=== PATIENT | male | born 1980 | race African-American/Black ===

== ENCOUNTER 2017-11-15 12:13 | Emergency (ER) | payer SELFPAY ==
[2017-11-15] MEDS ORDERED: Penicillin V Potassium 250 MG TAB ONE (12:55)
== END 2017-11-15 13:00 | disposition home or self-care (01) ==
LOC: NAV ERS 12:13
DX: J02.9 Acute pharyngitis, unspecified (principal); E11.9 Type 2 diabetes mellitus without complications; F17.210 Nicotine dependence, cigarettes, uncomplicated
CPT/HCPCS: 99283

== ENCOUNTER 2017-11-30 22:12 | Emergency (ER) | payer SELFPAY ==
[2017-11-30] MEDS ORDERED: cefTRIAXone\\ROCEPHIN 1 GM VIAL ONE (23:02)
[2017-11-30] MEDS ORDERED: Sodium Chloride 0.9% 100 ML ONE (23:03)
[2017-11-30] MEDS ORDERED: Ketorolac Tromethamine 30 MG/ML VIAL ONE (23:12)
[2017-11-30 23:16] LABS: Anion Gap 18 mmol/L (10-20); BUN (Urea Nitrogen) 16 mg/dL (8.9-20.6); Band 22 % (5-11); Calc. Creatinine Clearance 0 mL/min (70-130); Calcium 9.9 mg/dL (7.8-10.44); Carbon Dioxide 21 mmol/L (22-29); Chloride 104 mmol/L (98-107); Eosinophils 1 % (0-10); Estimated GFR-MDRD Greater than 90; Glucose 117 mg/dL (70-105); Hemoglobin 14.9 g/dL (14.0-18.0); Lymphocytes 13 % (21-51); MDiff Complete? YES; Mean Corpuscular HGB CONC 31.3 g/dL (32.0-36.0); Mean Corpuscular Hemoglobin 29.3 pg (27.0-31.0); Mean Corpuscular Volume 93.5 fL (78.0-98.0); Mean Platelet Volume 7.3 fL (7.4-10.4); Monocytes 7 % (0-10); Neutrophil 57 % (42-75); PLT Morphology Comment Appears Adequate; Platelet Count 371 thou/uL (130-400); Potassium 4.2 mmol/L (3.5-5.1); RBC Distribution Width 12.8 % (11.5-14.5); RBC Morphology Normal; Red Blood Cell (RBC) Count 5.07 mill/uL (4.70-6.10); Sodium 139 mmol/L (136-145); White Blood Cell (WBC) Count 15.5 thou/uL (4.8-10.8)
[2017-12-01] MEDS ORDERED: Dexamethasone 20 MG/5 ML VIAL ONE (00:43)
--- NOTE | 2017-12-01 10:53 | CT ---
CONTRAST ENHANCED CT IMAGES OF SOFT TISSUE NECK: 11/30/17 HISTORY: Patient with sore throat. Diagnosed with strep. Did not finish antibiotics. Rule out peritonsillar ab scess. Contrast enhanced CT images of the soft tissue neck obtained. Images demonstrate a left area of soft tissue hypodensity in the region of the left palatine tonsil d iameter measuring 1.3 x 2.5 cm. This is compatible with a left palatine tonsil abscess with some slig ht right sided deviation of the uvula and encroachment into the hypopharyngeal region and posterior a spect of the oropharynx. No definite evidence of necrotic lymph nodes seen. Some bilateral deep cervical and level III mildly enlarged lymph nodes also seen. IMPRESSION: Left peritonsillar abscess. Axial images measuring 1.3 x 2.5 cm. POS: [facility]
== END 2017-12-01 01:04 | disposition home or self-care (01) ==
LOC: NAV ERS 22:12
DX: J36 Peritonsillar abscess (principal); E11.9 Type 2 diabetes mellitus without complications; F17.210 Nicotine dependence, cigarettes, uncomplicated
CPT/HCPCS: 70492; 80048; 85025; 96365; 96375; J0696; J1100; J1885; J7050

== ENCOUNTER 2019-03-22 17:25 | Emergency (ER) | payer SELFPAY ==
[2019-03-22 18:12] LABS: #Basophils 0.1 thou/uL (0.0-0.2); #Lymphocytes 1.9 thou/uL (1.20-3.40); #Monocytes 0.8 thou/uL (0.11-0.59); #Neutrophils 9.2 thou/uL (1.40-6.50); %Basophils 1.2 % (0.0-1.0); %Eosinophils 0.1 % (0.0-10.0); %Lymphocytes 15.9 % (21.0-51.0); %Monocytes 6.7 % (0.0-10.0); %Neutrophils 76.1 % (42.0-75.0); Hemoglobin 15.9 g/dL (14.0-18.0); Mean Corpuscular Volume 96.9 fL (78.0-98.0); Mean Platelet Volume 7.2 fL (7.4-10.4); Platelet Count 304 thou/uL (130-400); RBC Distribution Width 12.8 % (11.5-14.5); Red Blood Cell (RBC) Count 5.13 mill/uL (4.70-6.10); White Blood Cell (WBC) Count 12.1 thou/uL (4.8-10.8)
--- NOTE | 2019-03-22 18:18 | CT ---
CT BRAIN WITHOUT CONTRAST ENHANCEMENT: HISTORY: Head injury after falling off a horse. FINDINGS: The ventricular and cisternal system is within normal limits. There are no signs of intracerebral he morrhage or extraaxial fluid collections. The mastoid air cells and visualized sinuses are clear. IMPRESSION: No acute intracranial abnormalities. POS: [facility]
[2019-03-22] MEDS ORDERED: Ketorolac Tromethamine 30 MG/ML VIAL ONE (18:41)
--- NOTE | 2019-03-22 18:42 | RAD ---
PA CHEST AND RIGHT RIBS FOUR VIEWS: HISTORY: Rib injury. FINDINGS: Heart size and mediastinum are within normal limits. Lungs are clear of infiltrates. No effusions are identified. No rib fractures. IMPRESSION: Negative right ribs. POS: [facility]
--- NOTE | 2019-03-22 18:42 | CT ---
CT CERVICAL SPINE WITHOUT CONTRAST: HISTORY: Neck injury post falling off a horse. FINDINGS: Vertebral bodies are normal in height. Disk spaces appear well preserved. Facets are in normal alignm ent. No canal or foraminal stenosis. No evidence of fracture. IMPRESSION: No CT evidence of fracture of the cervical spine. POS: [facility]
[2019-03-22 18:44] LABS: ALT (SGPT) 28 U/L (8-55); AST (SGOT) 71 U/L (5-34); Albumin 4.6 g/dL (3.5-5.0); Alkaline Phosphatase 102 U/L (40-110); Anion Gap 24 mmol/L (10-20); BUN (Urea Nitrogen) 14 mg/dL (8.9-20.6); Bilirubin, Total 0.7 mg/dL (0.2-1.2); Calc. Creatinine Clearance 0 mL/min (70-130); Calcium 9.9 mg/dL (7.8-10.44); Carbon Dioxide 21 mmol/L (22-29); Chloride 102 mmol/L (98-107); Estimated GFR-MDRD Greater than 90; Globulin 3.2 g/dL (2.4-3.5); Glucose 115 mg/dL (70-105); Potassium 4.5 mmol/L (3.5-5.1); Protein, Total 7.8 g/dL (6.0-8.3); Sodium 142 mmol/L (136-145)
--- NOTE | 2019-03-22 19:02 | RAD ---
RIGHT SHOULDER THREE VIEWS: HISTORY: Shoulder injury. FINDINGS: There are no signs of fracture or dislocation. IMPRESSION: Negative right shoulder. POS: [facility]
== END 2019-03-22 19:19 | disposition home or self-care (01) ==
LOC: NAV ERS 17:25
DX: S06.0X1A Concussion with loss of consciousness of 30 minutes or less, initial encounter (principal); T14.8XXA Other injury of unspecified body region, initial encounter; E11.9 Type 2 diabetes mellitus without complications; F17.210 Nicotine dependence, cigarettes, uncomplicated; W55.12XA Struck by horse, initial encounter
CPT/HCPCS: 70450; 72125; 80053; 85025; 96374; J1885

== ENCOUNTER 2019-05-28 09:54 | Emergency (ER) | payer OTHER, SELFPAY ==
[2019-05-28] MEDS ORDERED: Ketorolac Tromethamine 60 MG/2 ML VIAL ONE (10:26)
--- NOTE | 2019-05-28 10:50 | RAD ---
RIGHT SHOULDER 3 VIEWS: HISTORY: Trauma. Right shoulder pain. FINDINGS/IMPRESSION: No acute fracture or dislocation is identified. POS: [facility]
== END 2019-05-28 11:12 | disposition home or self-care (01) ==
LOC: NAV ERS 09:54
DX: S43.401A Unspecified sprain of right shoulder joint, initial encounter (principal); E10.9 Type 1 diabetes mellitus without complications; F17.210 Nicotine dependence, cigarettes, uncomplicated; W23.0XXA Caught, crushed, jammed, or pinched between moving objects, initial encounter
CPT/HCPCS: 96372; J1885

== ENCOUNTER 2020-07-31 04:22 | Emergency (ER) | payer SELFPAY ==
[2020-07-31] MEDS ORDERED: Lidocaine 1% w/Epinephrine 1:100K 30 ML VIAL ONE (04:53)
[2020-07-31] MEDS ORDERED: Sulfameth/Trimethoprim DS 800-160mg TAB ONE (05:25)
== END 2020-07-31 05:30 | disposition home or self-care (01) ==
LOC: NAV ERS 04:22
DX: L02.31 Cutaneous abscess of buttock (principal); E10.9 Type 1 diabetes mellitus without complications; F17.210 Nicotine dependence, cigarettes, uncomplicated
CPT/HCPCS: 10060

== ENCOUNTER 2022-07-25 13:29 | Emergency (ER) | payer SELFPAY | END 2022-07-25 14:05 | disposition home or self-care (01) | LOC: NAV ERS 13:29 | DX: K04.7 Periapical abscess without sinus (principal); F17.210 Nicotine dependence, cigarettes, uncomplicated; E11.9 Type 2 diabetes mellitus without complications | CPT/HCPCS: 99282 ==

== ENCOUNTER 2024-02-12 22:13 | Emergency (ER) | payer SELFPAY ==
[2024-02-12] MEDS ORDERED: Amoxicillin/Potassium Clav 875 MG TAB ONE (23:53)
== END 2024-02-12 23:57 | disposition home or self-care (01) ==
LOC: NAV ERS 22:13
DX: K04.7 Periapical abscess without sinus (principal); F17.210 Nicotine dependence, cigarettes, uncomplicated; E10.9 Type 1 diabetes mellitus without complications
CPT/HCPCS: 99282